=== PATIENT | male | born 1950 | race Caucasian/White ===

== ENCOUNTER → 2016-06-09 | Day surgery (SDC) | payer OTHER, MEDICARE ==
[2016-06-09] VITALS (9 sets, daily range): BP systolic 115–150; BP diastolic 56–74; PULSE 92–102; TEMP 36.5–36.6; O2SAT 92–94; Ht 172.7 cm; Wt 134.0 kg
[~2016-06-09] VITALS: Ht 172.7 cm; Wt 134.0 kg
[~2016-06-09] MED LIST: ACET-1175 PO; ACET-1256 PO; ACETAMINOPHEN 500 MG TAB PO PRN; APIX1TAB3 PO; ASCAUNK PO; ASCO10003 PO; ASPCH81X PO; ASPI81TA21 PO; ATV/1 PO; CETI10TA10 PO; CLC100 PO; CMBIN INH; DIPH-437 PO; DOCU-94 PO; DOUNEB INH; ENAL5TAB PO; FAMO1TAB71 PO; FLUT0.15 INTNAS; FURO20TA PO; HYDR-5688 PO; IPRA1AER2 INH; IPRASOL4 INH; LNX25 PO; MELO15TA4 PO; OXGN; POTA-327 PO; POTA10CA28 PO; PSYL48.59 PO; PSYL55.43 PO; PYRI100T4 PO; RXC5 PO; SIMV20TA2 PO; ULT50 PO; WARF5TAB90 PO
--- NOTE | 2016-06-09 10:40 | Discharge Instructions ---
Discharge Instructions Procedure Procedure Date: Jun 09, 2016. Reason for visit: Lumbar Pain. Discharge Discharge Date: Jun 09, 2016. Discharge Diagnosis: spinal stenosis Instructions Activity Recommendations: 1 Day with no driving/machine use Return to School/Work: no limitations Recommended Home Diet: Resume Previous Diet Allergies Coded Allergies: Hydromorphone (Verified Allergy, Severe, SHORTNESS OF BREATH, 06/09/16) HIVES Iodinated Contrast Media (Unverified Allergy, Severe, IVP DYE = RASH, rash hives and unable to breath, 06/09/16) Midazolam (Verified Allergy, Severe, SHORTNESS OF BREATH, 06/09/16) LETHARGY, UNRESPONSIVE [place] Recommendations: Call your doctor if: * Temperature above 101 degrees * Pain not relieved by pain medicine ordered * There is increased drainage or redness from any incision * You have any unanswered questions or concerns. Your Doctors Instructions noted above were prepared by provider Samson Spaulding. Patient Signature Section: Patient Instructions Signature Page Vimal Ceja Patient (or Guardian) Signature/Date: I have read and understand the instructions given to me by my caregivers. Caregiver/RN/Doctor Signature/Date: The above-named patient and/or guardian has received patient instructions on this date. + Original Patient Signature Page (only) stays with chart. Please make copy for patient.
--- NOTE | 2016-06-09 11:01 | DIAGNOSTIC IMAGING REPORT ---
CT POST MAMMOGRAM CT SCAN OF THE LUMBAR SPINE CT DOSE: 699.54 mGycm CLINICAL HISTORY: Low back pain. Spinal stenosis. TECHNIQUE: Following a diagnostic lumbar myelogram, CT scanning was performed. Helical images were acquired in the transverse plane. Multiplane are reformatted images were acquired. COMPARISON STUDY: Noncontrast CT scan dated 02/13/2016 FINDINGS: No fractures are visualized. No destructive lesions are identified. L1-2 level: There is no evidence for disc bulge or focal herniation. There is no evidence for spinal or foraminal stenosis. L2-3 level: There is a minimal circumferential disc bulge with slight flattening of the anterior aspect of thecal sac. There is no significant foraminal narrowing. L3-4 level: There is a circumferential disc bulge present. There is facet joint arthropathy. There is mild spinal stenosis. There is no significant foraminal narrowing L4-5 level: There is a circumferential disc bulge present. There is facet joint arthropathy. There is moderate to severe spinal stenosis. There is no significant foraminal narrowing. L5-S1 level: There is a diffuse circumferential disc bulge. There is a small amount of gas present within the epidural space. This is potentially iatrogenic. There is slight flattening of the right lateral aspect of thecal sac. IMPRESSION: 1. Disc bulge and mild spinal stenosis the L3-4 level. 2. Disc bulge and moderate to severe spinal stenosis at the L4-5 level. 3. Small amount of gas within the epidural space at the L5-S1 level. This is either iatrogenic, or secondary to gas dissecting from disc degeneration. There is slight flattening of the right lateral aspect of the thecal sac. Electronically signed by: Samson Spaulding M.D. 06/09/2016 11:00 AM Dictated Date/Time: 06/09/2016 10:52 AM
--- NOTE | 2016-06-09 11:07 | DIAGNOSTIC IMAGING REPORT ---
DIAGNOSTIC LUMBAR MYELOGRAM CLINICAL HISTORY: Low back pain spinal stenosis COMPARISON STUDY: Noncontrast CT scan dated 02/13/2016 FINDINGS: A timeout was performed. The risks of the procedure were explained the patient informed consent was obtained. The patient was prepped and draped in sterile fashion. The skin was anesthetized 1% lidocaine. A lumbar puncture was initially attempted at the L5-S1 level. Despite apparent satisfactory needle position, no CSF return was identified. There is therefore decided to perform lumbar puncture at a more superior level. Under fluoroscopic guidance, lumbar puncture was then performed at the L2-3 level utilizing a 20-gauge spinal needle. There is CSF return. 12 cc of Isovue-M 200 was instilled into the thecal sac. Anterior oblique and lateral imaging was performed. There are disc bulges present the L2-3, L3-4, and L4-5 levels. There is waisting of the myelographic column, most pronounced at the L4-5 level. This is consistent with moderate spinal stenosis. There is no evidence for nerve root amputation. There were no immediate complications. The patient sensed the CT suite for further evaluation. Substance CT scanning, the patient will be observed in the medical treatment unit prior to discharge. IMPRESSION: 1. Disc bulges at the L2-3, L3-4, and L4-5 levels. 2. Mild spinal stenosis at the L3-4 level, and moderate spinal stenosis the L4-5 level. Electronically signed by: Samson Spaulding M.D. 06/09/2016 11:06 AM Dictated Date/Time: 06/09/2016 11:02 AM
== END | disposition home or self-care (01) ==
LOC: C.ACU 07:42
PROVIDERS: ATTEND Orthopaedic Surgery Orthopaedic Surgery of the Spine
DX: M54.5 Low back pain (principal); M48.06 Spinal stenosis, lumbar region

== ENCOUNTER 2017-01-29 07:07 | Inpatient (IN) | payer OTHER, MEDICARE ==
[2017-01-12 11:32] VITALS: BMI 45.0
--- NOTE | 2017-01-12 12:15 | PAT Medication Instructions ---
Service Date Jan 12, 2017. Current Home Medication List Acetaminophen (Tylenol), 1,000 MG PO PRN Acetaminophen/Diphenhydramine (Tylenol Pm), 2 TAB PO HS Apixaban (Eliquis), 1 TAB PO BID Ascorbic Acid (Vitamin C Unknown Dose), 1,000 MG PO QAM Aspirin (Aspirin Chewable), 81 MG PO QAM Digoxin (Digoxin), 0.25 MG PO QAM Docusate Sodium (Colace *), 100 MG PO HS Enalapril Maleate (Vasotec), 5 MG PO BID Famotidine (Pepcid), 20 MG PO BID Fluticasone Propionate (Nasal) (Flonase Allergy Relief), 1 SPRAY INTNAS QAM Furosemide (Lasix), 40 MG PO HS Home O2 Therapy (Oxygen), 4.5 LITER NA HS Hydrocodone/Acetaminophen 5MG/325MG ([place] 5MG/325MG), 1-2 TABLET PO Q8H PRN for N Ipratropium/Albuterol (Duoneb Soln *), 3 ML INH Q4HR PRN Ipratropium/Albuterol (Combivent), 2 PUFFS INH QID PRN Lorazepam (Ativan), 1 MG PO HS Meloxicam (Mobic), 15 MG PO HS Potassium Chloride (Micro-K Ext Rel), 20 MEQ PO TID Psyllium (Metamucil Powder), 3 TBS PO Q2D PRN for PRN Pyridoxine (Vitamin B6), 100 MG PO QAM Simvastatin (Zocor), 40 MG PO HS Medication Instructions For Your Scheduled Surgery - Instructions to be given by primary/prescribing physician: Apixaban (Eliquis), 1 TAB PO BID - Hold the following medications 24 hours prior to surgery: Enalapril Maleate (Vasotec), 5 MG PO BID - Hold the following medications the morning of surgery: Ascorbic Acid (Vitamin C Unknown Dose), 1,000 MG PO QAM Pyridoxine (Vitamin B6), 100 MG PO QAM Meloxicam (Mobic), 15 MG PO HS (otherwise okay to continue per surgeon) Psyllium (Metamucil Powder), 3 TBS PO Q2D PRN for PRN Potassium Chloride (Micro-K Ext Rel), 20 MEQ PO TID - Take the following medications the morning of surgery with a sip of water OTHERWISE NOTHING TO EAT OR DRINK AFTER MIDNIGHT: Acetaminophen (Tylenol), 1,000 MG PO PRN (may take if needed up to 4 hours prior to surgery) Aspirin (Aspirin Chewable), 81 MG PO QAM Digoxin (Digoxin), 0.25 MG PO QAM Hydrocodone/Acetaminophen 5MG/325MG ([place] 5MG/325MG), 1-2 TABLET PO Q8H PRN ( may take if needed up to 4 hours prior to surgery) Ipratropium/Albuterol (Duoneb Soln *), 3 ML INH Q4HR PRN Ipratropium/Albuterol (Combivent), 2 PUFFS INH QID PRN Famotidine (Pepcid), 20 MG PO BID Fluticasone Propionate (Nasal) (Flonase Allergy Relief), 1 SPRAY INTNAS QAM - Take the following medications as scheduled the night before surgery: Acetaminophen (Tylenol), 1,000 MG PO PRN Acetaminophen/Diphenhydramine (Tylenol Pm), 2 TAB PO HS Docusate Sodium (Colace *), 100 MG PO HS Furosemide (Lasix), 40 MG PO HS Hydrocodone/Acetaminophen 5MG/325MG ([place] 5MG/325MG), 1-2 TABLET PO Q8H PRN Ipratropium/Albuterol (Duoneb Soln *), 3 ML INH Q4HR PRN Ipratropium/Albuterol (Combivent), 2 PUFFS INH QID PRN Famotidine (Pepcid), 20 MG PO BID Lorazepam (Ativan), 1 MG PO HS Simvastatin (Zocor), 40 MG PO HS Psyllium (Metamucil Powder), 3 TBS PO Q2D PRN for PRN Potassium Chloride (Micro-K Ext Rel), 20 MEQ PO TID If you have any questions please call us at [phone] or [phone] or [phone]
[2017-01-12 13:03] LABS: URINE APPEARANCE CLEAR (CLEAR); URINE BILIRUBIN NEG (NEG); URINE COLOR YELLOW; URINE NITRITE NEG (NEG); URINE PH 6.5 (4.5-7.5); URINE SPECIFIC GRAVITY 1.021 (1.000-1.030); UROBILINOGEN NEG (NEG); ZZUR CULT IF INDIC CLEAN CATCH NO
[2017-01-12 13:12] LABS: CALCIUM 9.5 mg/dl (8.5-10.1); CREATININE 0.78 mg/dl (0.60-1.40); POTASSIUM 4.9 mmol/L (3.5-5.1)
[2017-01-12 13:39] LABS: MANUAL MICROSCOPIC REQUIRED? NO; REVIEW REQ? NO
[2017-01-12 13:54] LABS: BASO % 0.5 %; BASO ABS # 0.04 K/uL (0-0.2); COMPLETE YES; HEMATOCRIT 44.9 % (42-52); IG% 0.3 %; LYMPH ABS # 3.04 K/uL (1.2-3.4); MEAN CELL VOLUME 94.1 fL (80-100); MONO % 11.4 %; NEUT % 49.8 %; PLATELET COUNT 222 K/uL (130-400); RED BLOOD COUNT 4.77 M/uL (4.7-6.1); WHITE BLOOD COUNT 8.68 K/uL (4.8-10.8)
[2017-01-29] VITALS (9 sets, daily range): BP systolic 134–148; BP diastolic 69–81; PULSE 71–85; TEMP 36.4–36.7; O2SAT 92–98; Ht 172.7 cm; Wt 134.0 kg
[~2017-01-29] VITALS: Ht 172.7 cm; Wt 134.0 kg
[~2017-01-29 07:07] MED LIST changes: -ACET-1175 PO; -ACETAMINOPHEN 500 MG TAB PO PRN; -ASCO10003 PO; -ASPI81TA21 PO; +CEFAZOLIN 3000 MG/65 ML D5W IV SCH; -CETI10TA10 PO; -DOCU-94 PO; -IPRA1AER2 INH; -IPRASOL4 INH; +LACTATED RINGER'S 1000ML 1,000 ML IV SCH; -POTA10CA28 PO; -PSYL48.59 PO; -RXC5 PO; -ULT50 PO; -WARF5TAB90 PO
[2017-01-29] MEDS ORDERED: FENTANYL CITRATE INJ 50 MCG/1 ML 2 ML VIAL ONE ×6 (08:11→12:16)
--- NOTE | 2017-01-29 08:28 | History & Physical Bridge Note ---
H&P Re-Evaluation Bridge Note: I have examined the patient, reviewed the History & Physical and in the interval since the performance of the History & Physical I have noted the following changes of clinical significance: No changes noted
--- NOTE | 2017-01-29 08:29 | History and Physical ---
History & Physical Date Jan 29, 2017. Chief Complaint Back and leg pain History of Present Illness The patient is a 66 year old male with complaints of chronic back and leg pain Additional History Hepatic Disease: No Endocrine Disorder: No Kidney Disease: No Hypertension: Yes Heart Disease: No Bleeding Tendencies: No Infectious Diseases: No Allergies Coded Allergies: Hydromorphone (Verified Allergy, Severe, SHORTNESS OF BREATH, 01/12/17) HIVES Iodinated Contrast Media (Verified Allergy, Severe, IVP DYE = RASH, rash hives and unable to breath, 01/29/17) Midazolam (Verified Allergy, Severe, SHORTNESS OF BREATH, 01/12/17) LETHARGY, UNRESPONSIVE Home Medications Scheduled Acetaminophen (Tylenol), 1,000 MG PO PRN Acetaminophen/Diphenhydramine (Tylenol Pm), 2 TAB PO HS Apixaban (Eliquis), 1 TAB PO BID Ascorbic Acid (Vitamin C Unknown Dose), 1,000 MG PO QAM Aspirin (Aspirin Chewable), 81 MG PO QAM Digoxin (Digoxin), 0.25 MG PO QAM Docusate Sodium (Colace *), 100 MG PO HS Enalapril Maleate (Vasotec), 5 MG PO BID Famotidine (Pepcid), 20 MG PO BID Fluticasone Propionate (Nasal) (Flonase Allergy Relief), 1 SPRAY INTNAS QAM Furosemide (Lasix), 40 MG PO HS Home O2 Therapy (Oxygen), 4.5 LITER NA HS Ipratropium/Albuterol (Duoneb Soln *), 3 ML INH Q4HR PRN Ipratropium/Albuterol (Combivent), 2 PUFFS INH QID PRN Lorazepam (Ativan), 1 MG PO HS Meloxicam (Mobic), 15 MG PO HS Potassium Chloride (Micro-K Ext Rel), 20 MEQ PO TID Pyridoxine (Vitamin B6), 100 MG PO QAM Simvastatin (Zocor), 40 MG PO HS Scheduled PRN Hydrocodone/Acetaminophen 5MG/325MG ([place] 5MG/325MG), 1-2 TABLET PO Q8H PRN for N Psyllium (Metamucil Powder), 3 TBS PO Q2D PRN for PRN Physical Examination Skin: warm/dry, no rash Eyes: normal inspection, EOMI, sclerae normal ENT: normal ENT inspection, pharynx normal Head: normocephalic, atraumatic Neck: supple, no adenopathy, trachea midline Respiratory/Chest: lungs clear, normal breath sounds, no respiratory distress Cardiovascular: regular rate, rhythm, no edema, no murmur Abdomen / GI: normal bowel sounds, non tender Back: normal inspection Extremities: normal inspection, normal range of motion Neurologic/Psych: no motor/sensory deficits, alert, normal reflexes, oriented x 3 Diagnosis Lumbar spinal stenosis Plan of Treatment Lumbar decompression and fusion L3 4 L4 5 L5-S1
[2017-01-29] MEDS ORDERED: ATROPINE SULFATE 0.1 MG/ML 5ML SYR IV PRN (08:30)
[2017-01-29] MEDS ORDERED: ONDANSETRON INJ 2 MG/ML 2 ML VIAL IV PRN ×2 (08:30→12:45)
[2017-01-29] MEDS ORDERED: EpHEDrine SULFATE INJ 50 MG/ML AMP IV PRN (08:30)
[2017-01-29] MEDS ORDERED: FENTANYL CITRATE INJ 50 MCG/1 ML 2 ML VIAL IV PRN (08:30)
[2017-01-29] MEDS ORDERED: MIDAZOLAM HCL 1 MG/ML 2ML VIAL ONE (08:53)
[2017-01-29] MEDS ORDERED: BACITRACIN 50000 UNIT VIAL ONE (08:56)
[2017-01-29] MEDS ORDERED: BUPIVACAINE/EPINEPHRINE 0.5% MPF 1:200,000 30 ML VIAL ONE (08:56)
[2017-01-29] MEDS ORDERED: HYDROmorphone INJ 2 MG/ML SYR/VIAL ONE ×2 (09:31→12:13)
[2017-01-29] MEDS ORDERED: DEXAMETHASONE SOD INJ 4 MG/ML VIAL ONE (09:39)
[2017-01-29] MEDS ORDERED: PROPOFOL IV EMULSION 10 MG/ML 20 ML VIAL IV ONE (09:39)
[2017-01-29] MEDS ORDERED: ONDANSETRON INJ 2 MG/ML 2 ML VIAL ONE ×2 (09:39→12:46)
[2017-01-29] MEDS ORDERED: LIDOCAINE HCL 2% 2 ML VIAL (20MG/ML) ONE (09:39)
[2017-01-29] MEDS ORDERED: ALBUMIN HUMAN 5% 12.5 GM/250 ML VIAL IV ONE (10:21)
[2017-01-29] MEDS ORDERED: FLOSEAL HEMOSTATIC MATRIX 10ML TOP ONE (12:37)
[2017-01-29] MEDS ORDERED: SODIUM CHLORIDE 0.9% 1000ML 1,000 ML IV SCH ×2 (12:40→18:37)
[2017-01-29] MEDS ORDERED: METOCLOPRAMIDE HCL INJ 5 MG/ML 2 ML VIAL IV PRN (12:45)
[2017-01-29] MEDS ORDERED: ROCURONIUM BROMIDE 10 MG/ML 5 ML VIAL IV ONE (12:45)
[2017-01-29] MEDS ORDERED: MAGNESIUM HYDROXIDE SUSP 30 ML UDC PO PRN (12:45)
[2017-01-29] MEDS ORDERED: LORAZEPAM 0.5 MG TAB PO PRN (12:45)
[2017-01-29] MEDS ORDERED: BISACODYL 10 MG SUPP PR PRN (12:45)
[2017-01-29] MEDS ORDERED: ALUMINUM/MAGNESIUM SUSP 30 ML UDC PO PRN (12:45)
[2017-01-29] MEDS ORDERED: PROMETHAZINE HCL INJ 12.5 MG in SODIUM CHLORIDE 0.9% 50ML 50 ML IV PRN (12:45)
[2017-01-29] MEDS ORDERED: SOD PHOSPHATE/SOD BIPHOSPHATE ENEMA 132 ML BTL PR PRN (12:45)
[2017-01-29] MEDS ORDERED: NALOXONE HCL 0.4 MG/1 ML VIAL/CARP IV PRN ×2 (12:45)
[2017-01-29] MEDS ORDERED: DO NOT ADMINISTER FLU VACCINE PRN ×3 (12:45)
[2017-01-29] MEDS ORDERED: LORAZEPAM INJ 0.5 MG in SYRINGE 0 ML IV PRN (12:45)
[2017-01-29] MEDS ORDERED: ACETAMINOPHEN IV 100 ML IV PRN (12:45)
[2017-01-29] MEDS ORDERED: FAMOTIDINE 20 MG TAB PO PRN (12:45)
[2017-01-29] MEDS ORDERED: hydrOXYzine HCL 25 MG TAB PO PRN (12:45)
[2017-01-29] MEDS ORDERED: DO NOT ADMINISTER PNEUMOCOCCAL VACCINE PRN ×2 (12:45)
[2017-01-29] MEDS ORDERED: NEOSTIGMINE METHYLSULFATE 1 MG/ML 10ML VIAL ONE (12:46)
[2017-01-29] MEDS ORDERED: LABETALOL HCL IV 5 MG/ML 20ML IV ONE (12:46)
[2017-01-29] MEDS ORDERED: CEFAZOLIN SOD 1 GM VIAL ONE (12:46)
[2017-01-29] MEDS ORDERED: GLYCOPYRROLATE INJ 0.2 MG/ML VIAL ONE (12:46)
[2017-01-29] MEDS ORDERED: PHENYLEPHRINE 100MCG/ML 5ML SYR ONE (12:46)
--- NOTE | 2017-01-29 12:55 | DIAGNOSTIC IMAGING REPORT ---
INTRAOPERATIVE RADIOGRAPHS CLINICAL HISTORY: L3-S1 spinal fusion. Fluoroscopy time: 41 seconds. FINDINGS: 3 spot fluoroscopic views of lumbar spine are presented. There is evidence of discectomy at L4-L5 and L5-S1. There has been laminectomy and posterior fusion from L3 -S1. Interpedicular screws are present at all levels. The orthopedic hardware appears intact. IMPRESSION: Intraoperative images from L3 -S1 spinal fusion as above. Electronically signed by: Himanshu Bellamy M.D. 01/29/2017 12:53 PM Dictated Date/Time: 01/29/2017 12:52 PM
--- NOTE | 2017-01-29 12:58 | [facility] Operative Report ---
Operative Report Operative Date Jan 29, 2017. Pre-Operative Diagnosis Lumbar Spinal Stenosis Post-Operative Diagnosis Same as preoperative Procedure(s) Performed #1 lumbar decompression medial facetectomy foraminotomies L2 3 L3 4 L4 5 L5-S1. #2 posterior spinal fusion L3 4 L4 5 L5-S1. #3 placement of posterior segmental instrumentation L3 4 L4 5 L5-S1. #4 interbody fusion L4 5 L5-S1. #5 placement peek Cage 14 x 26 at L4 5 and 12 x 26 at L5-S1. #6 placement of locally harvested morcellized autograft in the posterior lateral gutters. #7 placement infuse collagen sponge commode Master graft in the posterior lateral gutters and ostial amp in the interbody space. Surgeon Dr. Freedom Villarreal Energy Director Surgeon(s) Justin Lacy PA-C Estimated Blood Loss 850ml Findings Severe spinal stenosis and spondylolisthesis Specimens None per surgeon Description of Procedure Patient was met with preoperatively case discussed all questions are dressed. After informed consent was taken to the operative suite underwent intubation placed in a prone position the Jourdan table on top [place] frame. All bony prominences were well-padded and eyes inspected to ensure there is no external pressure placed upon them. This point the lumbar spine was prepped and draped nostril fashion. Sharp dissection with the assistance of Bovie cautery was performed onto an exposing the lamina and transverse processes of L3 L4-L5 and the sacral alar bilaterally. From a caudal to cephalad fashion a complete laminectomy of L5 L4 L3 and partial laminectomy of L2 was performed addressing severe lateral recess and foraminal stenosis. Pedicle screws are then placed in L3 L4 L5 and S1 levels bilaterally and the probably size jay placed. Through a transforaminal approach on the left complete discectomy of L5 S1 was performed and plate created to subcortical bleeding bone and a 12 x 26 Fang peek cage filled with ostial amp tapped in position. I then proceeded L4 5. Again through a transforaminal approach complete discectomy was performed and plate created to subcortical bleeding bone and a 14 x 26 Roma peek cage filled with ostial amp tapped into position. The rods were then compressed locked and final position bilaterally. Cross-link was placed. Transverse processes of L3 L4-L5 and sacral alar burred to subcortical bleeding bone. Infuse collagen sponge mask graft locally harvested morcellized autograft was placed and posterior gutters. 15 round CHERYL drain inserted. Incision closed with 1 Vicryl in the fascia 2-0 Vicryl subcutaneous C4 0 Monocryl for final skin closure Steri-Strip sterile dressing placed. Patient we can take PACU stable condition. Please note Erlin hankins was present throughout the entire procedure involved in patient positioning complex portions of the surgery and final skin closure. I attest to the content of the Intraoperative Record and any orders documented therein. Any exceptions are noted below.
[2017-01-29] MEDS ORDERED: MoRPHine SULFATE 1 MG/ML 50 ML PCA CASS ONE (13:10)
[2017-01-29] MEDS: MoRPHine SULFATE 1 MG/ML 50 ML PCA CASS IV PRN ×4 (13:48→22:51)
[2017-01-29] MEDS ORDERED: POTASSIUM CHLORIDE 10 MEQ TABCR PO SCH (14:00)
--- NOTE | 2017-01-29 14:09 | Anesthesiology Progress Note ---
Anesthesia Post Op Note Date & Time Jan 29, 2017 at 14:08 Vital Signs Pain Intensity: 4 Vital Signs Past 12 Hours Date Time Temp Pulse Resp B/P (MAP) Pulse Ox O2 Delivery O2 Flow Rate FiO2 01/29/17 14:01 37.0 01/29/17 13:57 82 13 93 01/29/17 13:57 81 13 01/29/17 13:56 168/81 01/29/17 13:52 82 15 93 01/29/17 13:52 82 15 01/29/17 13:51 159/77 01/29/17 13:47 105 17 01/29/17 13:47 81 17 95 01/29/17 13:46 82 12 161/72 93 01/29/17 13:46 83 12 01/29/17 13:41 81 14 01/29/17 13:41 81 14 165/55 94 01/29/17 13:40 81 22 95 01/29/17 13:40 83 22 01/29/17 13:36 166/70 01/29/17 13:35 82 14 01/29/17 13:35 82 14 96 01/29/17 13:31 150/61 01/29/17 13:30 81 13 01/29/17 13:30 81 13 96 01/29/17 13:29 82 16 01/29/17 13:29 82 16 96 01/29/17 13:26 156/76 01/29/17 13:24 83 18 94 01/29/17 13:24 83 18 01/29/17 13:21 157/74 01/29/17 13:19 84 19 01/29/17 13:19 84 19 95 01/29/17 13:17 160/78 01/29/17 13:15 161/79 01/29/17 13:14 85 17 01/29/17 13:14 85 17 92 01/29/17 13:10 151/90 01/29/17 13:09 85 16 99 01/29/17 13:09 37.1 93 16 151/90 98 Oxymask 10 01/29/17 13:09 84 16 01/29/17 07:47 36.7 71 20 147/81 95 Room Air Notes Mental Status: alert / awake / arousable, participated in evaluation Pt Amnestic to Procedure: Yes Nausea / Vomiting: adequately controlled Pain: adequately controlled Airway Patency, RR, SpO2: stable & adequate BP & HR: stable & adequate Hydration State: stable & adequate Anesthetic Complications: no major complications apparent
[2017-01-29] MEDS: SODIUM CHLORIDE 0.9% 1000ML 1,000 ML IV SCH ×2 (14:26→19:08)
[2017-01-29] MEDS ORDERED: ALBUT/IPRATROP 3MG/0.5MG NEB 3 ML VIAL INH PRN (15:30)
[2017-01-29] MEDS: CEFAZOLIN IV 3,000 MG in DEXTROSE 5% 50ML 50 ML IV SCH (17:31)
--- NOTE | 2017-01-29 18:11 | Medical Consult ---
Consultation Date of Consultation: Jan 29, 2017. Attending Physician: Freedom Villarreal D.O. Reason for Consultation: post-op medical management History of Present Illness This is a 66yo M with a PMH of lumbar spine stenosis with neurogenic claudication, CHF with pacemaker, A fib (on Eliquis), COPD, HTN and KIMMY who is s /p lumbar decompression and fusion of L3-S1 by Dr. Villarreal. Patient has suffered from ongoing chronic back and leg pain and has failed conservative measures. Doing well post-operatively. Has a history of chronic A Fib, for which he takes Eliquis. Was instructed to stop 2 days prior to surgery. Back pain is currently controlled with pain regimen. Denies any confusion, lightheadedness, CP, palpitations, dyspnea, SOB, nausea, vomiting, abdominal pain, calf pain, LE swelling or weakness. Past Medical/Surgical History Medical Problems: (1) CHF (congestive heart failure) Status: Chronic (2) Chronic atrial fibrillation Status: Chronic (3) COPD (chronic obstructive pulmonary disease) Status: Chronic (4) HTN (hypertension) Status: Chronic (5) Lumbar stenosis with neurogenic claudication Status: Chronic (6) KIMMY (obstructive sleep apnea) Status: Chronic (7) Pacemaker Status: Chronic Surgical Problems: (1) S/P lumbar spinal fusion Status: Chronic Social History Smoking Status: Former Smoker Smokeless Tobacco Use: Unknown Alcohol Use: socially Drug Use: none Marital Status: Allergies Coded Allergies: Hydromorphone (Verified Allergy, Severe, SHORTNESS OF BREATH, 01/12/17) HIVES Iodinated Diagnostic Agents (Verified Allergy, Severe, IVP DYE = RASH, rash hives and unable to breath, 01/29/17) Midazolam (Verified Allergy, Severe, SHORTNESS OF BREATH, 01/12/17) LETHARGY, UNRESPONSIVE Home Medications Reported Home Medications Medications Dose Route/Sig Max Daily Dose Days Date Category Dose Instructions Flonase Allergy Relief (Fluticasone Propionate (Nasal)) 50 Mcg/Act Spr 1 [place] INTNAS QAM 01/12/17 Reported Oxygen Gas 4.5 Liter NA HS 01/12/17 Reported [place] 5MG/325MG (Acetaminophen/Hydrocodone Bitart) Tab 1-2 Tablet PO Q8H PRN 01/12/17 Reported PRN PAIN Tylenol (Acetaminophen) 500 Mg Tab 1,000 Mg PO PRN 01/12/17 Reported Digoxin 0.25 Mg Tab 0.25 Mg PO QAM 01/12/17 Reported Eliquis (Apixaban) 5 Mg Tab 1 Tab PO BID 06/09/16 Reported Aspirin Chewable (Aspirin) 81 Mg Chew 81 Mg PO QAM 06/14/13 Reported Mobic (Meloxicam) 15 Mg Tab 15 Mg PO HS 06/14/13 Reported Vasotec (Enalapril Maleate) 5 Mg Tab 5 Mg PO BID 06/14/13 Reported Combivent (Ipratropium [place]) Aer 2 Puffs INH QID PRN 01/05/12 Reported Duoneb Soln * (Ipratropium [place]) Nebu 3 Ml INH Q4HR PRN 01/05/12 Reported PRN SHORTNESS OF BREATH OR WHEEZING. Ativan (Lorazepam) 1 Mg Tab 1 Mg PO HS 01/05/12 Reported Tylenol Pm (Acetaminophen/Diphenhydramine HCl) 500 Mg/25 Mg Tab 2 Tab PO HS 01/05/12 Reported Metamucil Powder (Psyllium Hydrophilic Mucilloid) Powd 3 Tbs PO Q2D PRN 01/05/12 Reported Colace * (Docusate Sodium) 100 Mg Cap 100 Mg PO HS 01/05/12 Reported Vitamin B6 (Pyridoxine HCl) 100 Mg Tab 100 Mg PO QAM 01/05/12 Reported Vitamin C Unknown Dose (Ascorbic Acid) Tab 1,000 Mg PO QAM 01/05/12 Reported Zocor (Simvastatin) 20 Mg Tab 40 Mg PO HS 01/05/12 Reported Micro-K Ext Rel (Potassium Chloride) 10 Meq Tab 20 Meq PO TID 01/05/12 Reported Lasix (Furosemide) 20 Mg Tab 40 Mg PO HS 01/05/12 Reported Pepcid (Famotidine) 20 Mg Tab 20 Mg PO BID 01/05/12 Reported Current Inpatient Medications Current Inpatient Medications Medications (Trade) Dose Ordered Sig/Jon Route Start Time Stop Time Status Last Admin Dose Admin Dexamethasone Sodium Phosphate 6 mg/Syringe 1.5 ml @ 1 mls/min Q8H IV 01/29/17 18:00 01/30/17 10:02 Promethazine HCl 12.5 mg/Sodium Chloride 50.5 ml @ 202 mls/hr Q6H PRN IV 01/29/17 12:45 02/28/17 12:44 Ondansetron HCl (Zofran Inj) 4 mg Q6H PRN IV 01/29/17 12:45 02/28/17 12:44 Metoclopramide HCl (Reglan Inj) 10 mg Q6H PRN IV 01/29/17 12:45 02/28/17 12:44 Lorazepam (Ativan Tab) 0.5 mg Q8H PRN PO 01/29/17 12:45 02/28/17 12:44 Lorazepam 0.5 mg/ Syringe 0.25 ml @ 1 mls/min Q8H PRN IV 01/29/17 12:45 02/28/17 12:44 Pneumococcal Polysaccharide Vaccine 1 ea PRN PRN N/A 01/29/17 12:45 02/28/17 12:44 Influenza Virus Vacc Triv Types A&B 1 ea PRN PRN N/A 01/29/17 12:45 02/28/17 12:44 Polyethylene (Miralax Powder Packet) 17 gm Q6 PO 01/31/17 06:00 03/02/17 05:59 Bisacodyl (Dulcolax Supp) 10 mg DAILY PRN TX 01/29/17 12:45 02/28/17 12:44 Magnesium Hydroxide (Milk Of Magnesia Susp) 30 ml DAILY PRN PO 01/29/17 12:45 02/28/17 12:44 Morphine Sulfate (MoRPHine SULFATE INJ) 2 mg Q3H PRN IV 01/30/17 06:00 02/13/17 05:59 Oxycodone HCl (Roxicodone Immediate Rel Tab) 5-10mg prn moderate to sev... Q4H PRN PO 01/30/17 06:00 02/13/17 05:59 Cefazolin Sodium 3000 mg/Dextrose 65 ml @ 100 mls/hr Q8H IV 01/29/17 17:00 01/30/17 01:38 01/29/17 17:31 100 MLS/HR Sodium Chloride 1,000 ml @ 150 mls/hr Q6H40M IV 01/29/17 12:40 02/28/17 12:39 01/29/17 14:26 150 MLS/HR Acetaminophen (Tylenol Tab) 1,000 mg Q8H PRN PO 01/29/17 12:45 02/28/17 12:44 Acetaminophen 100 ml @ 400 mls/hr Q8H PRN IV 01/29/17 12:45 02/28/17 12:44 Naloxone HCl (Narcan Inj) 0.1 mg Q5M PRN IV 01/29/17 12:45 02/28/17 12:44 Senna/Docusate Sodium (Senokot S Tab) 2 tab HS PO 01/29/17 21:00 02/28/17 20:59 Sodium Biphosphate/ Sodium Phosphate (Fleet Enema) 132 ml ONE PRN TX 01/29/17 12:45 02/28/17 12:44 Hydroxyzine HCl (Vistaril Tab) 25 mg Q8H PRN PO 01/29/17 12:45 02/28/17 12:44 Al Hydroxide/Mg Hydroxide (Maalox Susp) 30 ml Q6H PRN PO 01/29/17 12:45 02/28/17 12:44 Famotidine (Pepcid Tab) 20 mg Q12 PRN PO 01/29/17 12:45 02/28/17 12:44 Diphenhydramine HCl (Benadryl Cap) 25 mg Q6H PRN PO 01/29/17 12:45 02/28/17 12:44 Miscellaneous Information (Discontinue COMPUTING CONSULTANT) 1 ea TODAY@0600 ONCE N/A 01/30/17 06:00 01/30/17 06:01 Naloxone HCl (Narcan Inj) 0.1 mg Q5M PRN IV 01/29/17 12:45 01/30/17 06:00 Morphine Sulfate (moRPHine SULFATE COMPUTING CONSULTANT) 50 mg PRN PRN IV 01/29/17 12:45 01/30/17 06:00 01/29/17 15:04 50 MG Sodium Chloride 1,000 ml @ 15 mls/hr Q24H IV 01/29/17 12:40 01/30/17 06:00 Aspirin (Ecotrin Tab) 81 mg QAM PO 01/30/17 09:00 03/01/17 08:59 Digoxin (Lanoxin Tab) 0.25 mg QAM PO 01/30/17 09:00 03/01/17 08:59 Enalapril Maleate (Vasotec Tab) 5 mg BID PO 01/29/17 21:00 02/28/17 20:59 Famotidine (Pepcid Tab) 20 mg BID PO 01/29/17 21:00 02/28/17 20:59 Fluticasone Propionate (Flonase Nasal [place]) 1 sprays QAM NA 01/30/17 09:00 03/01/17 08:59 Furosemide (Lasix Tab) 40 mg HS PO 01/29/17 21:00 02/28/17 20:59 Potassium Chloride (Klor-Con M10) 20 meq TID PO 01/29/17 14:00 02/28/17 13:59 01/29/17 15:50 20 MEQ Simvastatin (Zocor Tab) 40 mg HS PO 01/29/17 21:00 02/28/17 20:59 Albuterol/ Ipratropium (Combivent Respimat Inh) 2 puffs QID PRN INH 01/29/17 15:30 02/28/17 15:29 Albuterol/ Ipratropium (Duoneb) 3 ml Q4H PRN INH 01/29/17 15:30 02/28/17 15:29 Morphine Sulfate (MoRPHine SULFATE INJ) 4 mg Q3H PRN IV 01/30/17 06:00 02/13/17 05:59 Review of Systems Ten systems reviewed and negative except as noted in the HPI. Physical Exam Date Time Temp Pulse Resp B/P (MAP) Pulse Ox O2 Delivery O2 Flow Rate FiO2 01/29/17 17:25 36.4 80 134/69 (90) 98 Nasal Cannula 2.0 01/29/17 16:30 36.4 85 18 148/80 (102) 97 Nasal Cannula 2.0 01/29/17 15:30 36.4 80 18 144/75 (98) 96 Nasal Cannula 01/29/17 14:55 36.4 81 18 138/72 (94) 94 Nasal Cannula 4.0 01/29/17 14:25 36.5 82 16 139/74 (95) 94 Nasal Cannula 4.0 01/29/17 14:25 94 Nasal Cannula 4.0 01/29/17 14:25 94 Nasal Cannula 4.0 01/29/17 14:11 148/72 01/29/17 14:08 82 22 94 01/29/17 14:08 81 22 01/29/17 14:06 150/66 01/29/17 14:03 81 16 141/65 94 01/29/17 14:03 81 16 01/29/17 14:01 37.0 01/29/17 14:01 171/74 01/29/17 13:58 81 12 94 01/29/17 13:58 81 12 01/29/17 13:57 82 13 93 01/29/17 13:57 81 13 01/29/17 13:56 168/81 01/29/17 13:52 82 15 93 01/29/17 13:52 82 15 01/29/17 13:51 159/77 01/29/17 13:47 105 17 01/29/17 13:47 81 17 95 01/29/17 13:46 82 12 161/72 93 01/29/17 13:46 83 12 01/29/17 13:41 81 14 01/29/17 13:41 81 14 165/55 94 01/29/17 13:40 81 22 95 01/29/17 13:40 83 22 01/29/17 13:36 166/70 01/29/17 13:35 82 14 01/29/17 13:35 82 14 96 01/29/17 13:31 150/61 01/29/17 13:30 81 13 01/29/17 13:30 81 13 96 01/29/17 13:29 82 16 01/29/17 13:29 82 16 96 01/29/17 13:26 156/76 01/29/17 13:24 83 18 94 01/29/17 13:24 83 18 01/29/17 13:21 157/74 01/29/17 13:19 84 19 01/29/17 13:19 84 19 95 01/29/17 13:17 160/78 01/29/17 13:15 161/79 01/29/17 13:14 85 17 01/29/17 13:14 85 17 92 01/29/17 13:10 151/90 01/29/17 13:09 85 16 99 01/29/17 13:09 37.1 93 16 151/90 98 Oxymask 10 01/29/17 13:09 84 16 01/29/17 07:47 36.7 71 20 147/81 95 Room Air General Appearance: no apparent distress, + obese Head: normocephalic, atraumatic Eyes: normal inspection, PERRL, sclerae normal ENT: hearing grossly normal Neck: supple, no adenopathy, thyroid normal, no JVD, trachea midline Respiratory/Chest: chest non-tender, lungs clear, normal breath sounds, no respiratory distress, no accessory muscle use Cardiovascular: regular rate, rhythm, no murmur, normal peripheral pulses Abdomen/GI: normal bowel sounds, non tender, soft Back: normal inspection (Dressing in s/p lumbar spine surgery. Clean, dry intact. CHERYL drain visualized with sanguinous output. ) Extremities/Musculoskelatal: normal inspection (SCDs in place bilaterally ), no calf tenderness, normal capillary refill, no pedal edema Neurologic/Psych: no motor/sensory deficits, alert, normal mood/affect, oriented x 3 Skin: normal color, warm/dry, no rash Laboratory Results 01/12/17 12:16 Red Blood Count 4.77, Mean Corpuscular Volume 94.1, Mean Corpuscular Hemoglobin 31.0, Mean Corpuscular Hemoglobin Concent 33.0, Mean Platelet Volume 10.0, Neutrophils (%) (Auto) 49.8, Lymphocytes (%) (Auto) 35.0, Monocytes (%) (Auto) 11.4, Eosinophils (%) (Auto) 3.0, Basophils (%) (Auto) 0.5, Neutrophils # (Auto ) 4.32, Lymphocytes # (Auto) 3.04, Monocytes # (Auto) 0.99, Eosinophils # (Auto ) 0.26, Basophils # (Auto) 0.04 01/12/17 12:16 Test 01/12/17 12:16 01/29/17 07:29 White Blood Count 8.68 K/uL (4.8-10.8) Red Blood Count 4.77 M/uL (4.7-6.1) Hemoglobin 14.8 g/dL (14.0-18.0) Hematocrit 44.9 % (42-52) Mean Corpuscular Volume 94.1 fL (80-100) Mean Corpuscular Hemoglobin 31.0 pg (25-34) Mean Corpuscular Hemoglobin Concent 33.0 g/dl (32-36) Platelet Count 222 K/uL (130-400) Mean Platelet Volume 10.0 fL (7.4-10.4) Neutrophils (%) (Auto) 49.8 % Lymphocytes (%) (Auto) 35.0 % Monocytes (%) (Auto) 11.4 % Eosinophils (%) (Auto) 3.0 % Basophils (%) (Auto) 0.5 % Neutrophils # (Auto) 4.32 K/uL (1.4-6.5) Lymphocytes # (Auto) 3.04 K/uL (1.2-3.4) Monocytes # (Auto) 0.99 K/uL (0.11-0.59) Eosinophils # (Auto) 0.26 K/uL (0-0.5) Basophils # (Auto) 0.04 K/uL (0-0.2) RDW Standard Deviation 47.5 fL (36.4-46.3) RDW Coefficient of Variation 13.9 % (11.5-14.5) Immature Granulocyte % (Auto) 0.3 % Immature Granulocyte # (Auto) 0.03 K/uL (0.00-0.02) Urine Color YELLOW Urine Appearance CLEAR (CLEAR) Urine pH 6.5 (4.5-7.5) Urine Specific [place] 1.021 (1.000-1.030) Urine Protein NEG (NEG) Urine Glucose (UA) NEG (NEG) Urine Ketones NEG (NEG) Urine Occult Blood NEG (NEG) Urine Nitrite NEG (NEG) Urine Bilirubin NEG (NEG) Urine Urobilinogen NEG (NEG) Urine Leukocyte Esterase NEG (NEG) Anion Gap 3.0 mmol/L (3-11) Est Creatinine Clear Calc Drug Dose 126.4 ml/min Estimated GFR () 109.8 Estimated GFR (Non- 94.7 BUN/Creatinine Ratio 26.0 (10-20) Calcium Level 9.5 mg/dl (8.5-10.1) Hepatitis C Antibody Screen NEG (NEG) Last 24 Hours Test 01/29/17 07:29 Hepatitis C Antibody Screen NEG Assessment & Plan This is a 66yo M with a PMH of lumbar spine stenosis with neurogenic claudication, CHF with pacemaker, A fib (on Eliquis), COPD, HTN and KIMMY who is s /p lumbar decompression and fusion of L3-S1 by Dr. Villarreal. S/p Lumbar decompression & fusion of L3-S1: -POD#0, Dr. Villarreal (surgeon) -Pt is doing well post-operatively -Per ortho for pain control, wound care, anticoagulation and activities -Eliquis is currently held. Ortho to resume when appropriate in post-op -Monitor H&H, continue incentive spirometry, PT/OT when appropriate A fib: -s/p pacemaker -Eliquis held for now. Dr. Villarreal to re-start HTN: -Normotensive -Continue home dose of enalapril CHF: -Compensated; euvolemic -Denies CP, SOB. No LE swelling -Unable to access records of patient's last echo -Continue digoxin, enalapril -Discontinued lasix while on post-op IVF post contrast administration, OK to resume this and potassium in am. -Reassess clinically tomorrow HLD: -Continue statin KIMMY: -Brought CPAP from home -Set up ordered COPD: -Stable -Denies SOB -Continue home inhaler, nebs DVT Ppx: per ortho-Eliquis currently on hold. Cont SCDs Code status: FULL PCP: Dr. Lugo ([facility]) Dispo: Plan to return home once medically stable Thank you for this consultation. We will follow the patient with you during their hospital stay. You can reach a member of the [facility] Hospitalist Team 30/11 via pager @ . Sommer Vega, [facility] Hospitalist
[2017-01-29] MEDS: DEXAMETHASONE INJ 6 MG in SYRINGE 0 ML IV SCH (19:08)
[2017-01-29] MEDS: FAMOTIDINE 20 MG TAB PO SCH (20:14)
[2017-01-29] MEDS: DOCUSATE SODIUM/SENNA 50/8.6MG TAB PO SCH (20:15)
[2017-01-29] MEDS: SIMVASTATIN 40 MG TAB PO SCH (20:15)
[2017-01-29] MEDS: ENALAPRIL MALEATE 5 MG TAB PO SCH (20:15)
[2017-01-29] MEDS ORDERED: FUROSEMIDE 20 MG TAB PO SCH (21:00)
[2017-01-30] MEDS: SODIUM CHLORIDE 0.9% 1000ML 1,000 ML IV SCH (01:29)
[2017-01-30] MEDS: CEFAZOLIN IV 3,000 MG in DEXTROSE 5% 50ML 50 ML IV SCH (01:29)
[2017-01-30] MEDS: DEXAMETHASONE INJ 6 MG in SYRINGE 0 ML IV SCH ×2 (01:29→10:05)
[2017-01-30 03:47] VITALS: BP 145/74; PULSE 76; TEMP 36.6; O2SAT 95
[2017-01-30] MEDS ORDERED: NURSING DECISION MEDICATION ORDER SCH (05:30)
[2017-01-30] MEDS ORDERED: MoRPHine SULFATE 4 MG/ML 1 ML CARP\\VIAL IV PRN (06:00)
[2017-01-30] MEDS ORDERED: DC PCA ONE (06:00)
[2017-01-30] MEDS ORDERED: MoRPHine SULFATE 2 MG/ML CARP IV PRN (06:00)
[2017-01-30 06:20] LABS: COMPLETE YES; HEMATOCRIT 35.4 % (42-52); IG% 0.4 %; LYMPH % 7.9 %; LYMPH ABS # 1.02 K/uL (1.2-3.4); MEAN CELL VOLUME 92.7 fL (80-100); MEAN CORPUSCULAR HEMOGLOBIN 30.6 pg (25-34); MEAN CORPUSCULAR HGB CONC 33.1 g/dl (32-36); MEAN PLATELET VOLUME 9.2 fL (7.4-10.4); MONO % 7.3 %; NEUT % 84.4 %; PLATELET COUNT 216 K/uL (130-400); RED BLOOD COUNT 3.82 M/uL (4.7-6.1); WHITE BLOOD COUNT 12.97 K/uL (4.8-10.8)
[2017-01-30 06:30] LABS: INR 1.1 (0.9-1.1)
[2017-01-30 06:46] LABS: BUN/CREATININE RATIO 16.6 (10-20); CALCIUM 8.3 mg/dl (8.5-10.1); CREATININE 0.7 mg/dl (0.60-1.40); POTASSIUM 4.3 mmol/L (3.5-5.1)
[2017-01-30 07:19] VITALS: BP 129/72; PULSE 79; TEMP 36.5; O2SAT 96
[2017-01-30] MEDS: FLUTICASONE PROPIONATE NA SPR 16 GM BTL SCH (08:04)
[2017-01-30] MEDS: FAMOTIDINE 20 MG TAB PO SCH ×2 (08:04→20:54)
[2017-01-30] MEDS: ENALAPRIL MALEATE 5 MG TAB PO SCH ×2 (08:05→20:54)
[2017-01-30] MEDS: DIGOXIN 0.25 MG TAB PO SCH (08:06)
[2017-01-30] MEDS: ASPIRIN 81 MG ECTAB PO SCH (08:07)
[2017-01-30] MEDS: OXYCODONE HCL IR 5 MG TAB (IMMEDIATE RELEASE) PO PRN ×3 (08:09→20:04)
--- NOTE | 2017-01-30 10:48 | Progress Note ---
Progress Note Date of Service Jan 30, 2017. Progress Note Back pain is controlled leg pain markedly improved. On exam he is sitting in chair at bedside. He is comfortable. Strength testing. Assessment status post multilevel lumbar decompression fusion. Planned this time will continue physical therapy throughout the weekend assess his progress. He may very well be a candidate for discharge home Wednesday with home health.
[2017-01-30] MEDS: IPRATROPIUM BROMIDE/ALBUTEROL respimat INH INH PRN ×2 (11:31→20:05)
--- NOTE | 2017-01-30 14:48 | Progress Note ---
Internal Med Progress Note Date of Service: Jan 30, 2017. Provider Documentation: SUBJECTIVE: patient seen and examined at the bedside. sitting in chair. no acute distress. denies chest pain, shortness of breath. back pain controlled OBJECTIVE: Exam: General- no acute dsitress, breathing on room air Head-normocephalic, atraumatic Eyes-normal inspection, EOMI, sclerae normal Neck- no JVD, trachea midline Lungs- clear, normal breath sounds, no respiratory distress Heart-regular rate, rhythm, no edema, no murmur Abdomen- normal bowel sounds, non tender, truncal obesity Extremities- normal inspection, normal range of motion Neuro-no motor/sensory deficits, alert, normal reflexes, oriented x 3 Skin: warm/dry, no rash ASSESSMENT & PLAN: 66yo M with a PMH of lumbar spine stenosis with neurogenic claudication, CHF with pacemaker, A fib (on Eliquis), COPD, HTN and KIMMY who is s/p lumbar decompression and fusion of L3-S1 S/p Lumbar decompression & fusion of L3-S1: -POD#1, Dr. Villarreal (surgeon) -Per ortho for pain control, wound care, anticoagulation and activities -Eliquis is currently held. Ortho to resume when appropriate in post-op. Can also restart if patient going home -Monitor H&H, continue incentive spirometry, PT/OT when appropriate A fib: -s/p pacemaker -Eliquis held for now. Orthopedics to re-start HTN: -Normotensive -Continue home dose of enalapril CHF: -Compensated; euvolemic -Continue digoxin, enalapril -Discontinued lasix while on post-op IVF post contrast administration. Is euvolemic. Does not need to be urgently restarted. please restart on discharge of if shortness of breath HLD: -Continue statin KIMMY: -CPAP from home COPD: -Stable -Continue home inhaler, nebs DVT Ppx: per ortho-Eliquis currently on hold. Cont SCDs Code status: FULL PCP: [facility]. Lugo ([facility]) Vital Signs: Date Time Temp Pulse Resp B/P (MAP) Pulse Ox O2 Delivery O2 Flow Rate FiO2 01/30/17 08:06 88 01/30/17 08:00 Room Air 01/30/17 07:19 36.5 79 18 129/72 (91) 96 Room Air 01/30/17 03:47 36.6 76 16 145/74 (97) 95 CPAP 01/29/17 23:40 CPAP 01/29/17 23:09 36.6 82 16 147/75 (99) 96 CPAP 01/29/17 20:10 83 136/75 (95) 01/29/17 19:48 36.4 83 18 137/72 (93) 92 Room Air 01/29/17 17:25 36.4 80 134/69 (90) 98 Nasal Cannula 2.0 01/29/17 16:30 36.4 85 18 148/80 (102) 97 Nasal Cannula 2.0 01/29/17 15:30 36.4 80 18 144/75 (98) 96 Nasal Cannula 01/29/17 15:25 Nasal Cannula 4.0 Lab Results: Results Past 24 Hours Test 01/30/17 05:39 Range/Units White Blood Count 12.97 4.8-10.8 K/uL Red Blood Count 3.82 4.7-6.1 M/uL Hemoglobin 11.7 14.0-18.0 g/dL Hematocrit 35.4 42-52 % Mean Corpuscular Volume 92.7 80-100 fL Mean Corpuscular Hemoglobin 30.6 25-34 pg Mean Corpuscular Hemoglobin Concent 33.1 32-36 g/dl Platelet Count 216 130-400 K/uL Mean Platelet Volume 9.2 7.4-10.4 fL Neutrophils (%) (Auto) 84.4 % Lymphocytes (%) (Auto) 7.9 % Monocytes (%) (Auto) 7.3 % Eosinophils (%) (Auto) 0.0 % Basophils (%) (Auto) 0.0 % Neutrophils # (Auto) 10.95 1.4-6.5 K/uL Lymphocytes # (Auto) 1.02 1.2-3.4 K/uL Monocytes # (Auto) 0.95 0.11-0.59 K/uL Eosinophils # (Auto) 0.00 0-0.5 K/uL Basophils # (Auto) 0.00 0-0.2 K/uL RDW Standard Deviation 46.3 36.4-46.3 fL RDW Coefficient of Variation 13.8 11.5-14.5 % Immature Granulocyte % (Auto) 0.4 % Immature Granulocyte # (Auto) 0.05 0.00-0.02 K/uL Prothrombin Time 12.0 9.0-12.0 SECONDS Prothromb Time International Ratio 1.1 0.9-1.1 Sodium Level 136 136-145 mmol/L Potassium Level 4.3 3.5-5.1 mmol/L Chloride Level 100 98-107 mmol/L Carbon Dioxide Level 27 21-32 mmol/L Anion Gap 9.0 3-11 mmol/L Blood Urea Nitrogen 12 7-18 mg/dl Creatinine 0.70 0.60-1.40 mg/dl Est Creatinine Clear Calc Drug Dose 140.8 ml/min Estimated GFR () 114.8 Estimated GFR (Non- 99.0 BUN/Creatinine Ratio 16.6 10-20 Random Glucose 137 70-99 mg/dl Calcium Level 8.3 8.5-10.1 mg/dl
[2017-01-30 15:08] VITALS: BP 146/71; PULSE 88; TEMP 36.3; O2SAT 94
[2017-01-30 20:50] VITALS: BP 134/69; PULSE 90
[2017-01-30] MEDS: DOCUSATE SODIUM/SENNA 50/8.6MG TAB PO SCH (20:54)
[2017-01-30] MEDS: SIMVASTATIN 40 MG TAB PO SCH (20:55)
[2017-01-30 23:52] VITALS: BP 142/71; PULSE 84; TEMP 36.6; O2SAT 90
[2017-01-30] MEDS: ACETAMINOPHEN 500 MG TAB PO PRN (23:59)
[2017-01-31] MEDS: OXYCODONE HCL IR 5 MG TAB (IMMEDIATE RELEASE) PO PRN ×4 (01:36→20:39)
[2017-01-31] MEDS: POLYETHYLENE (MIRALAX) 17 GM PACK PO SCH ×4 (05:54→23:26)
[2017-01-31 06:36] VITALS: BP 126/70; PULSE 80; TEMP 36.5; O2SAT 91
[2017-01-31 07:14] VITALS: BP 146/73; PULSE 76; TEMP 36.6; O2SAT 94
[2017-01-31] MEDS: FAMOTIDINE 20 MG TAB PO SCH ×2 (07:51→20:03)
[2017-01-31] MEDS: FLUTICASONE PROPIONATE NA SPR 16 GM BTL SCH (07:51)
[2017-01-31] MEDS: ASPIRIN 81 MG ECTAB PO SCH (07:51)
[2017-01-31] MEDS: DIGOXIN 0.25 MG TAB PO SCH (07:53)
--- NOTE | 2017-01-31 07:59 | Progress Note ---
Progress Note Date of Service Jan 31, 2017. Progress Note Internal medicine hospitalist following the patient as cassandra consultant was called by nurse Patient who is s/p Lumbar decompression & fusion of L3-S1 POD#2 with history of atrial fibrillation, with pacemaker, CHF history, COPD, KIMMY who has been breathing on room air, had expressed to nurse that he was having chest pain this AM. An 12 lead EKG was ordered which showed atrial sensed ventricular-pace rhythm of around 82 beats per minute. Troponin was drawn, with results pending. When examined at bedside by medical provider, patient reports that his chest pain was right sided and lasted for 1 minute and rated 10 out 10 pain scale. However, no shortness of breath, no diaphoresis. Kilo occurred when sitting in chair. Patient continued to be sitting in chair during the interview. No obvious distress. Breathing on room air. Patient also reported that he had experienced similiar pain 1 month ago at home when doing some gardening outside 1 month ago. Besides cardiac history as mentioned above, patient denies history of myocardial infraction. Recently as he has been recuperating inpatient from back surgery, he has been utilizing the walk and placing weight on his upper extremities on the walker Physical Exam: General: no acute distress Neuro: awake and alert and oriented, not in pain Lungs: CTABL on auscultation Heart/Chest/Cardiovascular: heart rate regular, pacemaker on left chest, chest wall nontender to palpation, no JVD Abdomen: truncal obesity, nontender, + bowel sounds Recommendations: of following 1st troponin, if negative then obtain second second troponin. if both negative, there is very low probability that patient had cardiac chest pain. Recommend that patient continues current inpatient medications. Recommend to restart home dose diuretic
[2017-01-31] MEDS ORDERED: RXC5 PO (08:34)
--- NOTE | 2017-01-31 08:35 | Discharge Instructions ---
Discharge Instructions Date of Service Jan 31, 2017. Admission Reason for Admission: Spinal Stenosis Discharge Discharge Diagnosis / Problem: lumbar spinal stenosis Discharge Goals Goal(s): Improve function Activity Recommendations Activity Limitations: per Instructions/Follow-up section . Instructions / Follow-Up Instructions / Follow-Up ACTIVITY RECOMMENDATIONS: SELF CARE INSTRUCTIONS AFTER THORACIC/LUMBAR FUSIONS 1. You may walk to your tolerance. It is good exercise for your legs and back. Expect some back and intermittent leg aches and pains. 2. You may perform "counter-top" level activities (make a sandwich, abbi with a project, etc.). 3. No bending or lifting of more than 10 pounds or back twisting of any nature (roll like a log when turning in bed). 4. You may ride in a car for 20-30 minutes at a time. No driving until after your first visit with your doctor. 5. Frequent changes of position and restricting sitting to 30 minutes at a time will help limit the amount of back spasms and stiffness you may experience. 6. You may discontinue the use of ambulatory aids (cane, crutches, etc.) once your strength and confidence allow. 7. You may driver's license reviewing officer the shower and let water strike your incision when you arrive home at least once daily. Do not take a tub bath, sit in a hot tub or go into a swimming pool until after your first recheck in the office. SPECIAL CARE INSTRUCTIONS: VERY IMPORTANT TO READ AND REVIEW A. Your surgical incision has been closed with a cosmetic suture under the skin that will dissolve in about 6 weeks. In 14 days, you can use a pair of clean scissors and cut the suture that is left outside of the skin at the ends of your incision. 1. The small skin tapes can be removed 7 days after surgery if they have not fallen off by that point. 2. You may keep the wound open to air as much as possible to promote healing after post-op day number 5 unless told otherwise by your doctor. 3. If you think the wound looks like it is becoming infected (redness or worsening drainage) and/or you are experiencing fever, chill or worsening back pain and muscle spasms, contact the office so that we may evaluate you as soon as possible. B. Complications are uncommon, but please contact us if you have any signs or symptoms of: 1. wound infection (fever higher than 102.5 degrees F, redness, separation of wound, drainage, or increasing pain from the incision) 2. blood clots in legs (pain, swelling, redness and warmth in legs) 3. urinary tract infection (fever higher than 102.5 degrees F, burning upon urination or increased frequency of urination) 4. nerve problems (inability to walk on your toes or heels, numbness, loss of bowel or bladder control) 5. any other symptoms that concern you C. Please call the office at if you have any concerns or questions about your operation or recovery. D. No smoking! Smoking drastically decreases the chance of a solid fusion. E. Do not take any anti-inflammatory medications (Indocin, Advil, Motrin, Aspirin, Naprosyn, etc.) as these may inhibit the chance of a solid fusion. Tylenol is okay to take for pain. MANAGING PAIN AFTER SPINAL SURGERY 1. Narcotic medication is intended for short-term use and will be provided for surgical pain. Surgical pain usually lasts for a period of 4-6 weeks. Narcotic medication includes Percocet, Vicodin, Darvocet, Tylenol #3 or Lortab. 2. Longer-term pain is more appropriately treated with non-narcotic medication such as Tylenol ES. 3. Muscle spasm is not appropriately treated with narcotics. Muscle relaxers such as Soma, Flexeril or Skelaxin can be used along with Tylenol ES. 4. Remember that we all live with some "aches and pains". This is not unusual or uncommon after an injury or as we get older. a. Back pain is expected and may include muscle spasms for 4 to 6 weeks after surgery. The pain should gradually improve. If the pain worsens for no apparent reason, please contact the office. b. Intermittent leg pain may also be experienced and should not be concerned about unless it worsens for no apparent reason. If so, please contact the office. 5. We will provide appropriate medication within the normal guidelines of their prescribed use. We will also be very cautious and aware of potential abuse and extended duration of patients' medication needs. a. Pain medications are for your comfort and to assist with sleep and rest so that the tissue can heal. They are not provided in order to return to normal activity and should not be used through the day. To do so or worsening pain at night can result from ongoing tissue damage and development of tolerance to the prescribed medicine. 6. Please allow 2-3 days to process refills. Prescriptions will not be mailed but must be picked up at the office. FOLLOW UP VISIT: Keep your scheduled follow-up appointment. Any questions, please call the office at . Current Hospital Diet Patient's current hospital diet: Regular Diet Discharge Diet Recommended Diet: Regular Diet Procedures Procedures Performed: #1 lumbar decompression medial facetectomy foraminotomies L2 3 L3 4 L4 5 L5-S1. #2 posterior spinal fusion L3 4 L4 5 L5-S1. #3 placement of posterior segmental instrumentation L3 4 L4 5 L5-S1. #4 interbody fusion L4 5 L5-S1. #5 placement peek Cage 14 x 26 at L4 5 and 12 x 26 at L5-S1. #6 placement of locally harvested morcellized autograft in the posterior lateral gutters. #7 placement infuse collagen sponge commode Master graft in the posterior lateral gutters and ostial amp in the interbody space. Pending Studies Studies pending at discharge: no Medical Emergencies . Who to Call and When: Medical Emergencies: If at any time you feel your situation is an emergency, please call 911 immediately. . Non-Emergent Contact Non-Emergency issues call your: Primary Care Provider . "Provider Documentation" section prepared by Freedom Villarreal. . VTE Core Measure Inpt VTE Proph given/why not?: Doni Salguero, SCD's
--- NOTE | 2017-01-31 08:36 | Progress Note ---
Progress Note Date of Service Jan 31, 2017. Progress Note Patient is noting improvement of his leg pain. Back pain is controlled. Vital signs are stable. CHERYL drain decreasing appropriately. On exam patient is sitting in chair as good strength testing appears comfortable. Assessment status post multilevel lumbar decompression fusion. Planned this time will continue with physical therapy advance his bowel regiment anticipate discharge home tomorrow with home health.
[2017-01-31] MEDS ORDERED: KETOROLAC TROMETHAMINE 15 MG/ML VIAL IV. PRN (08:45)
[2017-01-31] MEDS: ENALAPRIL MALEATE 5 MG TAB PO SCH ×2 (09:11→20:03)
[2017-01-31] MEDS: FUROSEMIDE 40 MG TAB PO SCH (09:11)
[2017-01-31 15:18] VITALS: BP 117/63; PULSE 81; TEMP 36.8; O2SAT 95
[2017-01-31] MEDS: DOCUSATE SODIUM/SENNA 50/8.6MG TAB PO SCH (20:02)
[2017-01-31] MEDS: SIMVASTATIN 40 MG TAB PO SCH (20:03)
[2017-01-31 22:54] VITALS: BP 133/73; PULSE 84; TEMP 36.7; O2SAT 95
[2017-01-31] MEDS: ACETAMINOPHEN 500 MG TAB PO PRN (23:03)
[2017-02-01] MEDS: OXYCODONE HCL IR 5 MG TAB (IMMEDIATE RELEASE) PO PRN ×3 (00:38→11:50)
[2017-02-01] MEDS: POLYETHYLENE (MIRALAX) 17 GM PACK PO SCH ×2 (06:35→11:50)
[2017-02-01 06:51] VITALS: BP 127/68; PULSE 81; TEMP 36.4; O2SAT 93
--- NOTE | 2017-02-01 07:34 | Anesthesiology Progress Note ---
Anesthesia Post Op Note Date & Time Feb 01, 2017 at 07:33 Vital Signs Pain Intensity: 2.0 Vital Signs Past 12 Hours Date Time Temp Pulse Resp B/P (MAP) Pulse Ox O2 Delivery O2 Flow Rate FiO2 02/01/17 07:10 Room Air 02/01/17 06:51 36.4 81 16 127/68 (87) 93 Room Air 02/01/17 00:00 Room Air 01/31/17 22:54 36.7 84 16 133/73 (93) 95 Room Air Notes Mental Status: alert / awake / arousable, participated in evaluation Pt Amnestic to Procedure: Yes Nausea / Vomiting: adequately controlled Pain: improving with treatment Airway Patency, RR, SpO2: stable & adequate BP & HR: stable & adequate Hydration State: stable & adequate Anesthetic Complications: no major complications apparent
[2017-02-01] MEDS: FUROSEMIDE 40 MG TAB PO SCH (08:01)
[2017-02-01] MEDS: FAMOTIDINE 20 MG TAB PO SCH (08:01)
[2017-02-01] MEDS: FLUTICASONE PROPIONATE NA SPR 16 GM BTL SCH (08:01)
[2017-02-01] MEDS: ASPIRIN 81 MG ECTAB PO SCH (08:02)
[2017-02-01] MEDS: DIGOXIN 0.25 MG TAB PO SCH (08:03)
[2017-02-01] MEDS: ENALAPRIL MALEATE 5 MG TAB PO SCH (08:04)
[2017-02-01 09:07] VITALS: BP 127/68; PULSE 82; TEMP 36.4; O2SAT 93
--- NOTE | 2017-02-01 09:10 | Consultant Recommendations ---
Framing Consultant Recommendations Date of Service Feb 01, 2017. Framing Consultant Recommendations Internal medicine hospitalist following the patient as etl consultant was called by nurse on 01/31/17 Post op day 2: Patient who is s/p Lumbar decompression & fusion of L3-S1 POD#2 with history of atrial fibrillation, with pacemaker, CHF history, COPD, KIMMY who has been breathing on room air, had expressed to nurse that he was having chest pain this AM. An 12 lead EKG was ordered which showed atrial sensed ventricular-pace rhythm of around 82 beats per minute. Troponin was drawn, with results pending. When examined at bedside by medical provider, patient reports that his chest pain was right sided and lasted for 1 minute and rated 10 out 10 pain scale. However, no shortness of breath, no diaphoresis. Kilo occurred when sitting in chair. Patient continued to be sitting in chair during the interview. No obvious distress. Breathing on room air. Patient also reported that he had experienced similiar pain 1 month ago at home when doing some gardening outside 1 month ago. Besides cardiac history as mentioned above, patient denies history of myocardial infraction. Recently as he has been recuperating inpatient from back surgery, he has been utilizing the walk and placing weight on his upper extremities on the walker Recommended to restart home dose diuretic. Patient had 2 negative troponins. Patient seen again by internal medicine consult on Post op day 3 Review of systems: patient denies further chest pain episodes. No shortness of breath. Continues to have limited motion of leaning forward for posterior lung auscultation. But denies significant back pain. No other complaints or new concerns Physical Exam: General: no acute distress Neuro: awake and alert and oriented, not in pain Lungs: CTABL on auscultation Heart/Chest/Cardiovascular: heart rate regular, pacemaker on left chest, chest wall nontender to palpation, no JVD Abdomen: truncal obesity, nontender, + bowel sounds Extremities: legs in compression stockings Framing Consultant recommendations: discharge as per orthopedics. Continue home dose cardiovascular medications. Discussed with patient about follow up with his primary care doctor and his animal skinner s/p his hospital discharge for back surgery.
--- NOTE | 2017-02-01 12:36 | Discharge Summary ---
Orthopedic Discharge Summary Admission Date/Reason Jan 29, 2017 at 09:00 Spinal Stenosis. Discharge Date/Disposition Feb 01, 2017 Home with services Diagnosis Principal Diagnosis: Lumbar spinal stenosis Admission Physical Exam As per Admitting History & Physical. Hospital Course Patient underwent multilevel lumbar decompression fusion tolerated this well as taken to the orthopedic 4 postop we. Postoperative day #1 was up and amatory progressed to postoperative day #2 posterior day #3 pain was well-controlled CHERYL drain decreased properly bowels working well subsequently discharged home. Discharge orders and instructions found on the chart for further review. Discharge Instructions Please refer to the electronic Patient Visit Report (Discharge Instructions) for additional information.
[2017-02-02] MEDS ORDERED: DOCU-94 PO (02:15)
[2017-02-02] MEDS ORDERED: ASCO10003 PO (02:16)
[2017-02-02] MEDS ORDERED: PSYL48.59 PO (02:17)
[2017-02-02] MEDS ORDERED: IPRA1AER2 INH (02:17)
[2017-02-02] MEDS ORDERED: IPRASOL4 INH (02:18)
[2017-02-02] MEDS ORDERED: POTA10CA28 PO (02:20)
== END 2017-02-01 14:04 | disposition home health service (06) | DRG 460 ==
LOC: C.ACU 07:07 → C.3E 09:00 → ENRESERV 14:02
PROVIDERS: ADMIT Orthopaedic Surgery Orthopaedic Surgery of the Spine; ATTEND Orthopaedic Surgery Orthopaedic Surgery of the Spine
PROC: 0SG3071 Fusion of Lumbosacral Joint with Autologous Tissue Substitute, Posterior Approach, Posterior Column, Open Approach (ICD-10-PCS; principal; 2017-01-29 09:15)
PROC: 0ST20ZZ Resection of Lumbar Vertebral Disc, Open Approach (ICD-10-PCS; principal; 2017-01-29 09:15)
PROC: 0ST40ZZ Resection of Lumbosacral Disc, Open Approach (ICD-10-PCS; principal; 2017-01-29 09:15)
PROC: 0SG30AJ Fusion of Lumbosacral Joint with Interbody Fusion Device, Posterior Approach, Anterior Column, Open Approach (ICD-10-PCS; principal; 2017-01-29 09:15)
PROC: 0SG00AJ Fusion of Lumbar Vertebral Joint with Interbody Fusion Device, Posterior Approach, Anterior Column, Open Approach (ICD-10-PCS; principal; 2017-01-29 09:15)
PROC: 0SG1071 Fusion of 2 or more Lumbar Vertebral Joints with Autologous Tissue Substitute, Posterior Approach, Posterior Column, Open Approach (ICD-10-PCS; principal; 2017-01-29 09:15)
DX: M48.06 Spinal stenosis, lumbar region (principal); Z68.41 Body mass index [BMI] 40.0-44.9, adult; M43.16 Spondylolisthesis, lumbar region; R07.9 Chest pain, unspecified; I48.2 Chronic atrial fibrillation; I50.9 Heart failure, unspecified; I11.0 Hypertensive heart disease with heart failure; J44.9 Chronic obstructive pulmonary disease, unspecified; G47.33 Obstructive sleep apnea (adult) (pediatric); E66.9 Obesity, unspecified; Z79.899 Other long term (current) drug therapy; Z79.01 Long term (current) use of anticoagulants; Z79.82 Long term (current) use of aspirin; Z95.0 Presence of cardiac pacemaker; Z87.891 Personal history of nicotine dependence

== ENCOUNTER 2017-02-02 01:16 | Emergency (ER) | payer OTHER, MEDICARE ==
[~2017-02-02] VITALS: Ht 172.7 cm; Wt 134.8 kg
[~2017-02-02 01:16] MED LIST changes: -CEFAZOLIN 3000 MG/65 ML D5W IV SCH; -LACTATED RINGER'S 1000ML 1,000 ML IV SCH; -MELO15TA4 PO; +RXC5 PO
[2017-02-02 01:34] VITALS: TEMP 36.8; Ht 172.7 cm; Wt 134.8 kg
[2017-02-02 01:54] LABS: BASO % 0.2 %; BASO ABS # 0.02 K/uL (0-0.2); COMPLETE YES; EOS % 1.4 %; HEMATOCRIT 33.4 % (42-52); IG% 0.8 %; LYMPH ABS # 2.59 K/uL (1.2-3.4); MEAN CELL VOLUME 92.5 fL (80-100); MEAN CORPUSCULAR HEMOGLOBIN 31.6 pg (25-34); MEAN CORPUSCULAR HGB CONC 34.1 g/dl (32-36); MEAN PLATELET VOLUME 9.9 fL (7.4-10.4); NEUT % 61.6 %; PLATELET COUNT 270 K/uL (130-400); RED BLOOD COUNT 3.61 M/uL (4.7-6.1); WHITE BLOOD COUNT 12.95 K/uL (4.8-10.8)
[2017-02-02 02:02] LABS: BUN/CREATININE RATIO 24.2 (10-20); CALCIUM 8.3 mg/dl (8.5-10.1); CREATININE 0.55 mg/dl (0.60-1.40); POTASSIUM 3.5 mmol/L (3.5-5.1)
[2017-02-02] MEDS ORDERED: DOCU-94 PO (02:15)
[2017-02-02] MEDS ORDERED: ASCO10003 PO (02:16)
[2017-02-02] MEDS ORDERED: PSYL48.59 PO (02:17)
[2017-02-02] MEDS ORDERED: IPRA1AER2 INH (02:17)
[2017-02-02] MEDS ORDERED: IPRASOL4 INH (02:18)
[2017-02-02] MEDS ORDERED: POTA10CA28 PO (02:20)
[2017-02-02 03:00] LABS: MAGNESIUM 2.1 mg/dl (1.8-2.4)
[2017-02-02] MEDS ORDERED: HYDROCODONE/ACETAMOPHEN 5/325MG TAB PO STA ×3 (04:31→08:56)
[2017-02-02 05:16] LABS: URINE APPEARANCE CLEAR (CLEAR); URINE BILIRUBIN NEG (NEG); URINE COLOR YELLOW; URINE NITRITE NEG (NEG); URINE SPECIFIC GRAVITY 1.006 (1.000-1.030); UROBILINOGEN NEG (NEG); ZZUR CULT IF INDIC CLEAN CATCH NO
[2017-02-02 05:20] LABS: MANUAL MICROSCOPIC REQUIRED? NO; REVIEW REQ? NO
--- NOTE | 2017-02-02 06:46 | EMERGENCY ROOM VISIT NOTE ---
History First contact with patient: :25 Chief Complaint: BACK PAIN Stated Complaint: BACK PAIN History of Present Illness The patient is a 66 year old male who presents to the Emergency Room with complaints of back pain. The patient had back surgery 3 days ago. He was discharged approximately 12 hours ago. The patient reports he is pain is "out of control." He states that he has been taking oxycodone at home without relief. The last time he took medication was 8 hours ago. The patient's daughter reports that the patient does not seem to be acting himself. She states that he accidentally took 2 Ativan and the one before bed. She reports that he has seemed drowsy. The daughter does report that the patient was initially supposed to be discharged to a rehabilitation facility, however he was discharged home. The daughter reports she is not comfortable taking care of the patient at home. He denies any fevers/chills or vomiting. He denies any urinary symptoms, leg numbness/weakness. Review of Systems A complete 10 point review of systems was reviewed with the patient with pertinent positives and negatives as per history of present illness. All else were negative. Past Medical/Surgical History Medical Problems: (1) CHF (congestive heart failure) (2) Chronic atrial fibrillation (3) COPD (chronic obstructive pulmonary disease) (4) HTN (hypertension) (5) Lumbar stenosis with neurogenic claudication (6) KIMMY (obstructive sleep apnea) (7) Pacemaker Surgical Problems: (1) S/P lumbar spinal fusion Social History Smoking Status: Former Smoker Drug Use: none Marital Status: Current/Historical Medications Scheduled Acetaminophen/Diphenhydramine (Tylenol Pm), 2 TAB PO HS Apixaban (Eliquis), 1 TAB PO BID Ascorbic Acid (Vitamin C), 1,000 MG PO DAILY Aspirin (Aspirin Chewable), 81 MG PO QAM Digoxin (Digoxin), 0.25 MG PO QAM Docusate Sodium (Colace), 100 MG PO HS Enalapril Maleate (Vasotec), 5 MG PO BID Famotidine (Pepcid), 20 MG PO BID Fluticasone Propionate (Nasal) (Flonase Allergy Relief), 1 SPRAY INTNAS QAM Furosemide (Lasix), 40 MG PO HS Home O2 Therapy (Oxygen), 4.5 LITER NA HS Lorazepam (Ativan), 1 MG PO HS Potassium Chloride (Micro-K Ext Rel), 20 MEQ PO TID Pyridoxine (Vitamin B6), 100 MG PO QAM Simvastatin (Zocor), 40 MG PO HS Scheduled PRN Acetaminophen (Tylenol), 1,000 MG PO Q6 PRN for Pain Hydrocodone/Acetaminophen 5MG/325MG (Snyder 5MG/325MG), 1-2 TABLET PO Q8H PRN for Pain Ipratropium-Albuterol (Combivent Respimat), 2 PUFFS INH QID PRN for SOB/Wheezing Ipratropium-Albuterol (Duoneb), 1 TREATMENT INH Q4H PRN for SOB/Wheezing Oxycodone HCl (Oxycodone HCl), 5-10 MG PO Q4H PRN for Moderate - severe pain Psyllium (Metamucil), 3 TBS PO Q2D PRN for Constipation Physical Exam Vital Signs Date Time Temp Pulse Resp B/P (MAP) Pulse Ox O2 Delivery O2 Flow Rate FiO2 02/02/17 13:22 73 16 95 02/02/17 12:14 75 169/75 92 Room Air 02/02/17 11:00 70 107/42 89 02/02/17 09:08 67 93/84 94 Room Air 02/02/17 07:12 70 18 120/72 02/02/17 05:52 70 20 100/31 93 Room Air 02/02/17 04:44 72 20 109/82 96 Nasal Cannula 2.0 02/02/17 03:42 78 20 119/62 98 Room Air 02/02/17 03:09 20 107/44 96 Room Air 02/02/17 01:34 36.8 74 18 124/75 95 Room Air Physical Exam VITALS: Vitals are noted on the nurse's note and reviewed by myself. Vital signs stable. GENERAL: This is a 66-year-old male, in no acute distress, nondiaphoretic, well- developed well-nourished. SKIN: There is a well-healing surgical incision to the lumbar spine. HEAD: Normocephalic atraumatic. EARS: External auditory canals clear, tympanic membranes pearly garcia without erythema or effusion bilaterally. EYES: Pupils equal round and reactive to light and accommodation. MOUTH: Mucous membranes slightly dry. HEART: Regular rate and rhythm without murmurs gallops or rubs. LUNGS: Clear to auscultation bilaterally without wheezes, rales or rhonchi. ABDOMEN: Positive bowel sounds x 4. Soft, nontender to palpation. MUSCULOSKELETAL: There is tenderness to palpation over the lumbar spine. Full range of motion bilateral lower extremities. NEURO: Patient was alert and oriented to person place and time. Normal sensation to light and sharp touch. Medical Decision & Procedures Laboratory Results 02/02/17 00:55 Red Blood Count 3.61, Mean Corpuscular Volume 92.5, Mean Corpuscular Hemoglobin 31.6, Mean Corpuscular Hemoglobin Concent 34.1, Mean Platelet Volume 9.9, Neutrophils (%) (Auto) 61.6, Lymphocytes (%) (Auto) 20.0, Monocytes (%) (Auto) 16.0, Eosinophils (%) (Auto) 1.4, Basophils (%) (Auto) 0.2, Neutrophils # (Auto ) 7.99, Lymphocytes # (Auto) 2.59, Monocytes # (Auto) 2.07, Eosinophils # (Auto ) 0.18, Basophils # (Auto) 0.02 02/02/17 00:55 Test 02/02/17 00:55 02/02/17 05:08 White Blood Count 12.95 K/uL (4.8-10.8) Red Blood Count 3.61 M/uL (4.7-6.1) Hemoglobin 11.4 g/dL (14.0-18.0) Hematocrit 33.4 % (42-52) Mean Corpuscular Volume 92.5 fL (80-100) Mean Corpuscular Hemoglobin 31.6 pg (25-34) Mean Corpuscular Hemoglobin Concent 34.1 g/dl (32-36) Platelet Count 270 K/uL (130-400) Mean Platelet Volume 9.9 fL (7.4-10.4) Neutrophils (%) (Auto) 61.6 % Lymphocytes (%) (Auto) 20.0 % Monocytes (%) (Auto) 16.0 % Eosinophils (%) (Auto) 1.4 % Basophils (%) (Auto) 0.2 % Neutrophils # (Auto) 7.99 K/uL (1.4-6.5) Lymphocytes # (Auto) 2.59 K/uL (1.2-3.4) Monocytes # (Auto) 2.07 K/uL (0.11-0.59) Eosinophils # (Auto) 0.18 K/uL (0-0.5) Basophils # (Auto) 0.02 K/uL (0-0.2) RDW Standard Deviation 45.7 fL (36.4-46.3) RDW Coefficient of Variation 13.5 % (11.5-14.5) Immature Granulocyte % (Auto) 0.8 % Immature Granulocyte # (Auto) 0.10 K/uL (0.00-0.02) Anion Gap 9.0 mmol/L (3-11) Est Creatinine Clear Calc Drug Dose 179.8 ml/min Estimated GFR () 126.7 Estimated GFR (Non- 109.4 BUN/Creatinine Ratio 24.2 (10-20) Calcium Level 8.3 mg/dl (8.5-10.1) Magnesium Level 2.1 mg/dl (1.8-2.4) Total Bilirubin 0.7 mg/dl (0.2-1) Direct Bilirubin 0.2 mg/dl (0-0.2) Aspartate Amino Transf (AST/SGOT) 37 U/L (15-37) Alanine Aminotransferase (ALT/SGPT) 26 U/L (12-78) Alkaline Phosphatase 78 U/L (45-117) Total Protein 6.4 gm/dl (6.4-8.2) Albumin 2.7 gm/dl (3.4-5.0) Urine Color YELLOW Urine Appearance CLEAR (CLEAR) Urine pH 7.0 (4.5-7.5) Urine Specific [place] 1.006 (1.000-1.030) Urine Protein NEG (NEG) Urine Glucose (UA) NEG (NEG) Urine Ketones NEG (NEG) Urine Occult Blood NEG (NEG) Urine Nitrite NEG (NEG) Urine Bilirubin NEG (NEG) Urine Urobilinogen NEG (NEG) Urine Leukocyte Esterase NEG (NEG) Medications Administered Medications (Trade) Dose Ordered Sig/Jon Route Start Time Stop Time Status Last Admin Dose Admin Acetaminophen/ Hydrocodone Bitart (Snyder 5/325 Tab) 1 tab NOW STAT PO 02/02/17 04:31 02/02/17 04:32 DC 02/02/17 04:41 1 TAB Acetaminophen/ Hydrocodone Bitart (Snyder 5/325 Tab) 1 tab NOW STAT PO 02/02/17 06:36 02/02/17 06:37 DC 02/02/17 06:41 1 TAB Acetaminophen/ Hydrocodone Bitart (Snyder 5/325 Tab) 1 tab NOW STAT PO 02/02/17 08:56 02/02/17 08:57 DC 02/02/17 09:05 1 TAB Fentanyl Citrate (Fentanyl Inj) 50 mcg NOW STAT IV 02/02/17 10:10 02/02/17 10:11 DC 02/02/17 10:41 50 MCG Fentanyl Citrate (Fentanyl Inj) 50 mcg NOW STAT IV 02/02/17 11:21 02/02/17 11:23 DC 02/02/17 13:05 50 MCG ED Course The patient was evaluated as above. Labs were drawn and IV access was obtained. The patient was monitored for several hours. He was given Snyder as needed for pain. Case management met with the patient and family. They will make referral to [facility]. Care of patient was signed out to Nancy Cedeno PA-C at change of shift pending [facility] referral. Medical Decision Differential diagnoses includes intractable pain, infection, neurological, among others. The patient was medicated as above. He initially was slightly confused and slow to respond, however I think this was due to taking an additional dose of Ativan before bed. The patient was monitored and after several hours was acting much more appropriately. The patient does seem to be having severe pain. I am not suspicious of infection. There is no fever. White count is similar to when he was in the hospital after surgery. The incision is well- healing. I do feel the patient would benefit from a stay at a rehabilitation facility. Case management with the patient and family and they were agreeable to this. Case was signed out to Nancy Cedeno PA-C at change of shift awaiting a bed at [facility]. Please see her dictation for patient disposition. Medication Reconcilliation Current Medication List: was personally reviewed by me Blood Pressure Screening Patient's blood pressure: Normal blood pressure Impression Primary Impression: Back pain Departure Information Referrals Conor Lugo (PCP) Patient Instructions My [facility]
[2017-02-02] MEDS ORDERED: FENTANYL CITRATE INJ 50 MCG/1 ML 2 ML VIAL IV STA ×2 (10:10→11:21)
--- NOTE | 2017-02-02 11:24 | EMERGENCY ROOM VISIT NOTE ---
ED Visit Note First contact with patient: 08:56 The patient was signed out to me at shift change by Luz Polanco PA-C. Please see her dictation for additional details and hospital course. Briefly, the patient was discharged yesterday after having back surgery by Dr. Villarreal. He returned because he was having significant pain and is unable to perform activities of daily living at home. At the time of sign out, we were awaiting acceptance at [facility]. I did give the patient 50 g IV fentanyl with mild improvement in his pain. He was then given an additional [address] Villarreal was paged but I did not hear back from him Justin Lacy PA-C was paged and I was able to speak with him. He is in agreement with sending the patient to [facility]. At this time, we did hear back from [facility] and they now have a bed available. He will be transported to [facility]. The patient and family are happy with this plan of care.
[2017-02-02 12:14] VITALS: BP 169/75
[2017-02-02 13:22] VITALS: PULSE 73; O2SAT 95
--- NOTE | 2017-02-04 11:21 | DIAGNOSTIC IMAGING REPORT ---
CHEST ONE VIEW PORTABLE CLINICAL HISTORY: Respiratory distress COMPARISON STUDY: January 05, 2012 FINDINGS: A single view is provided for interpretation. The lung bases are not included. There is a left subclavian dual-chamber central venous pacemaker. There is additional electronic device which projects over the aortic knob. There is no overt failure. There is no focal pulmonary consolidation.[ Note: This examination was presented for interpretation on 02/04/2017 at 11:20 AM. IMPRESSION: Significantly limited study from a technical standpoint. No evidence of focal pulmonary consolidation. Electronically signed by: Samson Spaulding M.D. 02/04/2017 11:19 AM Dictated Date/Time: 02/04/2017 11:17 AM
== END 2017-02-02 13:05 ==
LOC: EDBD 01:16 → C.EDB 01:18
DX: M54.9 Dorsalgia, unspecified (principal); Z98.890 Other specified postprocedural states; I50.9 Heart failure, unspecified; I11.0 Hypertensive heart disease with heart failure; I48.91 Unspecified atrial fibrillation; J44.9 Chronic obstructive pulmonary disease, unspecified; G47.33 Obstructive sleep apnea (adult) (pediatric); Z95.0 Presence of cardiac pacemaker; Z98.1 Arthrodesis status; Z87.891 Personal history of nicotine dependence; Z79.01 Long term (current) use of anticoagulants; Z79.899 Other long term (current) drug therapy

== ENCOUNTER 2017-02-14 04:01 | Emergency (ER) | payer OTHER, MEDICARE ==
[~2017-02-14] VITALS: Ht 172.7 cm; Wt 130.0 kg
[~2017-02-14 04:01] MED LIST changes: -ASCAUNK PO; +ASCO10003 PO; -CLC100 PO; -CMBIN INH; +DOCU-94 PO; -DOUNEB INH; +IPRA1AER2 INH; +IPRASOL4 INH; -POTA-327 PO; +POTA10CA28 PO; +PSYL48.59 PO; -PSYL55.43 PO
[2017-02-14 04:06] VITALS: TEMP 36.9; Ht 172.7 cm; Wt 130.0 kg
[2017-02-14] MEDS ORDERED: OXYC1TAB3 PO (04:28)
[2017-02-14 04:57] LABS: URINE APPEARANCE CLEAR (CLEAR); URINE BILIRUBIN NEG (NEG); URINE COLOR YELLOW; URINE NITRITE NEG (NEG); URINE SPECIFIC GRAVITY 1.016 (1.000-1.030); UROBILINOGEN NEG (NEG); ZZUR CULT IF INDIC CLEAN CATCH NO
[2017-02-14 05:05] LABS: MANUAL MICROSCOPIC REQUIRED? NO; REVIEW REQ? NO
[2017-02-14] MEDS ORDERED: LEVO-366 PO (06:19)
[2017-02-14 06:29] VITALS: BP 127/84; PULSE 71; O2SAT 93
[2017-02-14] MEDS ORDERED: LEVOFLOXACIN 250 MG TAB PO ONE (06:30)
--- NOTE | 2017-02-14 06:56 | DIAGNOSTIC IMAGING REPORT ---
(TESTICULAR) SCROTUM-CONT CLINICAL HISTORY: 66 years-old Male presenting with testicle pain. TECHNIQUE: Real-time grayscale and color and spectral Doppler ultrasound imaging of the scrotum was performed. COMPARISON: None. FINDINGS: Right testis: Normal echogenicity and echotexture. Testis measures 5.9 x 2.6 x 3.6 cm. Normal color Doppler flow and arterial and venous waveforms in the testicular parenchyma. Epididymal head normal. No hydrocele. No varicocele. Left testis: Normal echogenicity and echotexture apart from a tiny hypoechoic to anechoic focus, which appears to demonstrate color Doppler flow compatible with a prominent vessel. Testis measures 5.2 x 2.3 x 3.8 cm. Normal arterial and venous waveforms in the testicular parenchyma. Mildly increased flow to the left testicular parenchyma The epididymis contains multiple cystic regions, measuring up to 8 mm, a epididymal head cysts versus spermatoceles. No hydrocele. No varicocele. Slightly increased perfusion of the left relative to the right testis. IMPRESSION: 1. No evidence of testicular torsion. 2. Slight increase blood flow to the left testis. Although this could represent orchitis, the absence of hyperemia of the left epididymis suggests against this diagnosis. Electronically signed by: Clayton Canales M.D. 02/14/2017 6:55 AM Dictated Date/Time: 02/14/2017 6:48 AM
--- NOTE | 2017-02-15 01:32 | EMERGENCY ROOM VISIT NOTE ---
History First contact with patient: 04:08 Chief Complaint: TESTICULAR PAIN Stated Complaint: TESTICAL PAIN Nursing Triage Summary: woke up this morning from testicular pain History of Present Illness The patient is a 66 year old male who presents to the Emergency Room with complaints of acute onset testicle pain that he states woke him from sleep around 90 minutes ago. The patient initially contacted EMS who arrived on scene , however the patient's symptoms had nearly completely resolved. He declined EMS transport to the facility and now arrives via personal vehicle. The patient has not had urethral drainage or discharge. He has not had symptoms like this in the past. The patient has a relatively recent history of back surgery, however he seems to be recovering well from this after a stay at a rehabilitation hospital. The patient has been able to urinate as normal. He has not reported flank or abdominal pain. At the time of onset of the pain was a 10/10, but it is now a 2/10. He does not have other complaints such as nausea or vomiting. No chest pain or shortness of breath. Review of Systems More than 10 systems were reviewed and otherwise negative with the exception of history of present illness. Past Medical/Surgical History Medical Problems: (1) CHF (congestive heart failure) (2) Chronic atrial fibrillation (3) COPD (chronic obstructive pulmonary disease) (4) HTN (hypertension) (5) Lumbar stenosis with neurogenic claudication (6) KIMMY (obstructive sleep apnea) (7) Pacemaker Surgical Problems: (1) S/P lumbar spinal fusion Family History No pertinent family history Social History Smoking Status: Never Smoker Drug Use: none Marital Status: Current/Historical Medications Scheduled Acetaminophen/Diphenhydramine (Tylenol Pm), 2 TAB PO HS Apixaban (Eliquis), 1 TAB PO BID Ascorbic Acid (Vitamin C), 1,000 MG PO DAILY Aspirin (Aspirin Chewable), 81 MG PO QAM Digoxin (Digoxin), 0.25 MG PO QAM Docusate Sodium (Colace), 100 MG PO HS Enalapril Maleate (Vasotec), 5 MG PO BID Fluticasone Propionate (Nasal) (Flonase Allergy Relief), 1 SPRAY INTNAS QAM Furosemide (Lasix), 40 MG PO HS Home O2 Therapy (Oxygen), 4.5 LITER NA HS Levofloxacin (Levaquin), 500 MG PO DAILY Lorazepam (Ativan), 1 MG PO HS Potassium Chloride (Micro-K Ext Rel), 20 MEQ PO TID Pyridoxine (Vitamin B6), 100 MG PO QAM Simvastatin (Zocor), 40 MG PO HS Scheduled PRN Acetaminophen (Tylenol), 1,000 MG PO Q6 PRN for Pain Ipratropium-Albuterol (Combivent Respimat), 2 PUFFS INH QID PRN for SOB/Wheezing Ipratropium-Albuterol (Duoneb), 1 TREATMENT INH Q4H PRN for SOB/Wheezing Oxycodone Ir (Roxicodone Ir), 5-10 MG PO Q4H PRN for MODERATE-SEVERE PAIN Psyllium (Metamucil), 3 TBS PO Q2D PRN for Constipation Physical Exam Vital Signs Date Time Temp Pulse Resp B/P (MAP) Pulse Ox O2 Delivery O2 Flow Rate FiO2 02/14/17 06:29 71 18 127/84 93 02/14/17 04:06 36.9 75 18 138/65 92 Room Air Physical Exam VITALS: Vitals are noted on the nurse's note and reviewed by myself. Vital signs stable. GENERAL: Well-developed, well-nourished, white male, who is in no acute distress and resting comfortably. Patient is cooperative with the examination. HEAD: Normocephalic atraumatic. HEART: Regular rate and rhythm without murmurs gallops or rubs. LUNGS: Clear to auscultation bilaterally without wheezes, rales or rhonchi. No retractions or accessory muscle use. : Normal-appearing external male genitalia with circumcised phallus. No urethral drainage or discharge. Normal cremasteric reflex. No obvious testicular mass or tenderness on examination. No appreciable hernia. ABDOMEN: Positive normal bowel sounds x 4. Soft, nontender, without masses or organomegaly. No guarding or rebound tenderness. MUSCULOSKELETAL: No muscle atrophy, erythema, or edema noted. Full range of motion without joint tenderness in all extremities. No saddle paresthesias. Midline scar from recent back surgery appears well healing without tenderness or evidence of infection. Medical Decision & Procedures ER Provider Diagnostic Interpretation: (TESTICULAR) SCROTUM-CONT CLINICAL HISTORY: 66 years-old Male presenting with testicle pain. TECHNIQUE: Real-time grayscale and color and spectral Doppler ultrasound imaging of the scrotum was performed. COMPARISON: None. FINDINGS: Right testis: Normal echogenicity and echotexture. Testis measures 5.9 x 2.6 x 3.6 cm. Normal color Doppler flow and arterial and venous waveforms in the testicular parenchyma. Epididymal head normal. No hydrocele. No varicocele. Left testis: Normal echogenicity and echotexture apart from a tiny hypoechoic to anechoic focus, which appears to demonstrate color Doppler flow compatible with a prominent vessel. Testis measures 5.2 x 2.3 x 3.8 cm. Normal arterial and venous waveforms in the testicular parenchyma. Mildly increased flow to the left testicular parenchyma The epididymis contains multiple cystic regions, measuring up to 8 mm, a epididymal head cysts versus spermatoceles. No hydrocele. No varicocele. Slightly increased perfusion of the left relative to the right testis. IMPRESSION: 1. No evidence of testicular torsion. 2. Slight increase blood flow to the left testis. Although this could represent orchitis, the absence of hyperemia of the left epididymis suggests against this diagnosis. Laboratory Results Test 02/14/17 04:35 Urine Color YELLOW Urine Appearance CLEAR (CLEAR) Urine pH 7.0 (4.5-7.5) Urine Specific [place] 1.016 (1.000-1.030) Urine Protein NEG (NEG) Urine Glucose (UA) NEG (NEG) Urine Ketones NEG (NEG) Urine Occult Blood NEG (NEG) Urine Nitrite NEG (NEG) Urine Bilirubin NEG (NEG) Urine Urobilinogen NEG (NEG) Urine Leukocyte Esterase NEG (NEG) Medications Administered Medications (Trade) Dose Ordered Sig/Jon Route Start Time Stop Time Status Last Admin Dose Admin Levofloxacin (Levaquin Tab) 500 mg NOW ONCE PO 02/14/17 06:30 02/14/17 06:31 DC 02/14/17 06:27 500 MG ED Course Physical exam and history were performed. Nursing notes, EMR, and Medication List were personally reviewed. Patient appears to have acute onset testicular pain that evidently woken from sleep. His symptoms were brief in duration and have nearly completely subsided at this point. A urine was collected and does not show evidence of blood, infection, or calcium oxalate. Because of this and did elect to perform ultrasound. The ultrasound is as above and may suggest orchitis without epididymitis. Based on the patient's age and symptoms as well as recent surgical history I will provide a 10 day course of Levaquin. I do recommend the patient follow with his primary care physician for further care and management. He was certainly invited back to the ER if symptoms return or persist. He was pleased with plan of care and rated his discomfort a 0/10 at time of departure. The chart was completed utilizing [employer] Speech Voice Recognition Software. Grammatical errors, random word insertions, pronoun errors, and incomplete sentences are an occasional consequence of this system due to software limitations, ambient noise, and hardware issues. Any formal questions or concerns about the content, text, or information contained within the body of this dictation should be directly addressed to the provider for clarification. . Medical Decision Differential diagnosis: Etiologies such as torsion, kidney stone, mass, infection, hernia, hydrocele, epididymitis, trauma, intra-abdominal process, as well as others were entertained. Impression Primary Impression: Testicle pain Departure Information Dispostion Home / Self-Care Condition GOOD Prescriptions Levofloxacin (Levaquin) 500 Mg Tab 500 MG PO DAILY for 9 Days, #9 TAB Prov: Haresh Chaves PA-C 02/14/17 Forms HOME CARE DOCUMENTATION FORM, IMPORTANT VISIT INFORMATION Patient Instructions My [facility] Additional Instructions You were seen and evaluated today on an emergency basis only. This is not a substitute for, or an effort to provide, complete comprehensive medical care. It is not possible to recognize and treat all injuries or illnesses in a single emergency department visit. For this reason it is recommended that you followup with your primary care physician this week for ongoing care and evaluation. Take Levaquin once daily as prescribed. You are welcome to return to the emergency department anytime with new, worsening, or concerning symptoms.
== END 2017-02-14 06:30 | disposition home or self-care (01) ==
LOC: C.EDB 04:02 → C.EDA 06:30
DX: N50.819 Testicular pain, unspecified (principal); I10 Essential (primary) hypertension; I48.91 Unspecified atrial fibrillation; I50.9 Heart failure, unspecified; G47.33 Obstructive sleep apnea (adult) (pediatric); Z95.0 Presence of cardiac pacemaker; Z98.1 Arthrodesis status; Z79.82 Long term (current) use of aspirin; Z79.899 Other long term (current) drug therapy